=== PATIENT | male | born 1985 | race Caucasian/White ===

== ENCOUNTER → 2016-10-13 | Outpatient (CLI) | payer SELFPAY ==
[~2016-10-13] MED LIST: AMOX500C5 PO
[2016-10-13 18:24] VITALS: BP 137/78
--- NOTE | 2016-10-13 18:24 | Urgent Care T Sheet Gen (E) ---
Intake General Temperature (Fahrenheit): 98.1 Pulse: 94 Blood Pressure Systolic: 137 Blood Pressure Diastolic: 78 Respirations: 21 SPO2: 98 Chief Complaint: sore throat Source: Patient History of Present Illness Initial Comments Pt notes that for about the last 3 months off and on he has had sinus congestion and cough. He has been over in [place] and just thought it was due to the pollution. He notes in the last week he has developed a sore throat. Thinks he might have had a low grade fever as well about 1 week ago. Respiratory Constitutional Symptoms: See HPI Fever EENTM: See HPI Nose Congestion Throat pain Respiratory: No No symptoms reported, See HPI CoughNo Orthopnea, No Short of breath, No Stridor, No Wheezing, No Other Cardiovascular: No symptoms reported Gastrointestinal/Abdominal: No symptoms reported Genitourinary: No symptoms reported Skin: No symptoms reported All Other Systems Reviewed Remaining Systems: All other systems reviewed with negative findings Past Nokoeqz-Gueaza-Bpqdqi Hx Patient's Social History Alcohol Use: Denies Use Smoking Status: Never smoker Recent foreign travel: Yes Physical Exam Physical Exam General Appearance: WD/WN No apparent distress Eyes, Ears, Nose, Throat Ex: PERRL/EOMI TMs normal Pharyngeal erythema ( erythema) Other (Fluid behind bilat TM, but no erythema. Tenderness of maxillary sinuses bilat) Neck Exam: Non tender Full range of motion Normal inspection Normal thyroid Respiratory Exam: Lungs clear Normal breath sounds No respiratory distress Cardiovascular Exam: Regular rate, rhythm No edema GI/ Exam: Non tender Normal bowel sounds No distention Skin Exam: No rashes Progress/Orders Lab Results Labs Results: Rapid Strep (negative) Departure Urgent Care Impression Chief Complaint: sore throat Impression: Primary Impression: Sinusitis Qualified Code: J01.00 - Acute maxillary sinusitis, unspecified Departure Disposition: HOME OR SELF-CARE Condition: Stable Additional Instructions: Take Amoxicillin as prescribed below. Rest, push fluids. Follow-up with Primary Care Provider in 7-10 days. Return to UC or ER if symptoms get worse or further concerns. Discharge instructions verbally given to Patient. Patient verbalizes understanding of discharge instructions. Scripts Amoxicillin (Amoxil)500 Mg Capsule1,000 Mg PO BID Infection #40 CAP Ref 0 Take 2 tab po bid x 10 days Prov:MITCH CARDENAS 10/13/16 End of report . MITCH CARDENAS Oct 13, 2016 18:24
== END ==
LOC: MHUC 17:38
PROVIDERS: ATTEND Physician Assistant
DX: J01.00 Acute maxillary sinusitis, unspecified (principal)
CPT/HCPCS: 87880; 99203